=== PATIENT | female | born 1935 | race Hispanic/Latino ===

== ENCOUNTER 2017-02-13 11:40 | Emergency (ER) | payer MEDICARE ==
[~2017-02-13 11:40] MED LIST: ATOR10 PO; CEFU500T67 PO; CHOL200074 PO; CYCL30DR OU; DIGO250T PO; DOCU100T PO; FERS325 PO; FURO20TA4 PO; HUM10VIA6 SQ; ISOS30TA6 PO; LISI40TA4 PO; MAGN64TA9 PO; METF10004 PO; ONDA4TAB10 PO; TRAM50TA4 PO; WARF4TAB41 PO
[2017-02-13] MEDS ORDERED: ACETAMINOPHEN 325 MG TAB ONE (11:53)
[2017-02-13] MEDS ORDERED: ONDANSETRON HCL 4 MG/2 ML VIAL ONE (12:11)
[2017-02-13] MEDS ORDERED: SODIUM CHLORIDE 0.9% 1000ML 1,000 ML IV ONE (12:11)
[2017-02-13 13:00] LABS: BASOPHILS % (AUTO) 0.5 % (0.0-5.0); EOSINOPHILS % (AUTO) 0.1 % (0.0-8.0); HEMATOCRIT 29.8 % (36-48); MEAN CORPUSCULAR HGB CONC 34.5 g/dL (32.0-36.0); MONOCYTES % (AUTO) 7.5 % (3.0-13.0); NEUTROPHILS % (AUTO) 86.9 % (40.0-77.0); PLATELET COUNT (AUTO) 191 K/uL (130-400); RED BLOOD CELL COUNT(AUTO) 3.43 MIL/uL (4.00-5.50); RED CELL DISTRIBUTION WIDTH 14.5 % (11.0-15.5)
[2017-02-13 13:07] LABS: CREATININE 1.3 mg/dL (0.5-1.5); POTASSIUM 4.9 mmol/L (3.5-5.1)
[2017-02-13 13:15] LABS: BILIRUBIN,DIRECT 0.4 mg/dL (0.0-0.3); BILIRUBIN,TOTAL 0.9 mg/dL (0.2-1.0); TOTAL PROTEIN, SERUM 7.1 g/dL (6.0-8.3)
== END 2017-02-13 14:48 | disposition home or self-care (01) ==
LOC: EDH 11:40
DX: J20.9 Acute bronchitis, unspecified (principal); K52.9 Noninfective gastroenteritis and colitis, unspecified; I48.91 Unspecified atrial fibrillation; E11.9 Type 2 diabetes mellitus without complications; I10 Essential (primary) hypertension; E78.5 Hyperlipidemia, unspecified; Z95.0 Presence of cardiac pacemaker; Z98.890 Other specified postprocedural states
CPT/HCPCS: 36415; 71045; 80048; 80076; 83690; 85025; 87804 ×2; 96361; 96374; 99285; J2405; J7030

== ENCOUNTER 2017-04-13 20:02 | Inpatient (IN) | payer MEDICARE ==
[2017-04-13 21:04] LABS: BASOPHILS % (AUTO) 1.3 % (0.0-5.0); EOSINOPHILS % (AUTO) 7.4 % (0.0-8.0); HEMATOCRIT 36.2 % (36-48); LYMPHOCYTES % (AUTO) 21.8 % (21.0-51.0); MEAN CORPUSCULAR HEMOGLOBIN 28.7 pg (27.0-33.0); MEAN CORPUSCULAR HGB CONC 34.9 g/dL (32.0-36.0); MEAN CORPUSCULAR VOLUME 82.3 fL (79-99); MONOCYTES % (AUTO) 6.8 % (3.0-13.0); NEUTROPHILS % (AUTO) 62.7 % (40.0-77.0); NUCLEATED RED BLOOD CELLS 0.1 % (0.0-0.19); PLATELET COUNT (AUTO) 257 K/uL (130-400); RED CELL DISTRIBUTION WIDTH 15.1 % (11.0-15.5); WHITE BLOOD COUNT (AUTO) 8.9 K/uL (4.8-10.8)
[2017-04-13] MEDS ORDERED: SODIUM CHLORIDE 0.9% 1000ML 1,000 ML IV ONE ×2 (21:11→23:46)
[2017-04-13] MEDS ORDERED: INSULIN HUMULIN R 100 UNIT/ML 3ML ONE (21:11)
[2017-04-13 21:18] LABS: INR 1.02 (0.85-1.15); PARTIAL THROMBOPLASTIN TIME 25.9 SEC (26.3-35.5); PROTHROMBIN TIME 10.7 SEC (9.6-11.6)
[2017-04-13 21:33] LABS: ALANINE AMINOTRANSFERASE 15 U/L (12-78); ALBUMIN 3.2 g/dL (3.5-5.0); ASPARTATE AMINOTRANSFERASE 13 U/L (10-37); BILIRUBIN,TOTAL 0.5 mg/dL (0.2-1.0); CARBON DIOXIDE 27 mmol/L (21-32); CHLORIDE 91 mmol/L (101-111); CREATINE KINASE MB 0.9 ng/mL (0.5-3.6); CREATINE KINASE, TOTAL 22 U/L (21-232); CREATININE 1.4 mg/dL (0.5-1.5); GLOMERULAR FILTR. RATE CALC 38 mL/min (>60); POTASSIUM 3.8 mmol/L (3.5-5.1); SODIUM SERUM 129 mmol/L (136-145); TOTAL PROTEIN, SERUM 7.7 g/dL (6.0-8.3); UREA NITROGEN, BLOOD 36 mg/dL (7-18)
[2017-04-13 21:36] LABS: ACETONE,BLOOD NEGATIVE (NEGATIVE)
[2017-04-13 21:38] LABS: GLUCOSE,RANDOM 621 mg/dL (70-105)
[2017-04-13] MEDS ORDERED: SODIUM CHLORIDE 0.9% 1000ML 1,000 ML IV SCH (23:02)
[2017-04-13] MEDS ORDERED: DEXTROSE 50%-WATER 50 ML DISP.SYRIN IV PRN (23:30)
[2017-04-13] MEDS ORDERED: GLUCAGON 1MG KIT 1 MG ML IM PRN (23:30)
[2017-04-14] MEDS ORDERED: SODIUM CHLORIDE 0.9% 1000ML 1,000 ML IV ONE (00:49)
[2017-04-14 02:30] VITALS: BP 144/68
[2017-04-14] MEDS ORDERED: FURO20TA4 PO (03:11)
[2017-04-14] MEDS ORDERED: ISOS20TA7 PO (03:11)
[2017-04-14] MEDS ORDERED: HUM10VIA6 SQ ×2 (03:11)
[2017-04-14] MEDS ORDERED: ATOR10TA69 PO (03:11)
[2017-04-14] MEDS ORDERED: APIX2.5T PO (03:11)
[2017-04-14] MEDS ORDERED: ferrous sulfate PO (03:11)
[2017-04-14] MEDS ORDERED: POTA10TA PO (03:11)
[2017-04-14] MEDS ORDERED: DIGO125T87 PO (03:11)
[2017-04-14] MEDS ORDERED: AMLO5TAB2 PO (03:11)
[2017-04-14] MEDS ORDERED: [UNRECOGNIZED DRUG - CODE] PO (03:11)
[2017-04-14] MEDS ORDERED: ATEN50TA PO (03:11)
[2017-04-14] MEDS ORDERED: LOSA25TA21 PO (03:11)
[2017-04-14] MEDS: INSULIN HUMULIN R 100 UNIT/ML 3ML SQ SCH ×5 (04:14→20:00)
[2017-04-14 04:46] LABS: HEMATOCRIT 39.5 % (36-48); MEAN CORPUSCULAR HEMOGLOBIN 27.7 pg (27.0-33.0); MEAN CORPUSCULAR HGB CONC 33.1 g/dL (32.0-36.0); MEAN CORPUSCULAR VOLUME 83.8 fL (79-99); PLATELET COUNT (AUTO) 234 K/uL (130-400); RED BLOOD CELL COUNT(AUTO) 4.71 MIL/uL (4.00-5.50); RED CELL DISTRIBUTION WIDTH 15.1 % (11.0-15.5)
[2017-04-14 04:51] LABS: MAGNESIUM 1.6 mg/dL (1.80-2.40); POTASSIUM 3.4 mmol/L (3.5-5.1)
[2017-04-14 07:00] VITALS: BP 162/65
[2017-04-14] MEDS ORDERED: ENOXAPARIN SODIUM 30 MG/0.3 ML SQ SCH (09:00)
[2017-04-14] MEDS: PANTOPRAZOLE SODIUM 40 MG TABLET.DR PO SCH (09:24)
[2017-04-14 11:00] VITALS: BP 131/58
[2017-04-14 15:00] VITALS: BP 133/72
[2017-04-14 21:08] VITALS: BP 133/60
[2017-04-15] VITALS (7 sets, daily range): BP systolic 110–158; BP diastolic 51–78
[2017-04-15 03:33] LABS: APPEARANCE,URINE Cloudy (CLEAR); BILIRUBIN,URINE Negative (NEGATIVE); COLOR,URINE Yellow (YELLOW); GLUCOSE, URINE (UA) 500 mg/dL (NEGATIVE); KETONES,URINE Negative (NEGATIVE); LEUKOCYTE ESTERASE ,URINE Moderate (NEGATIVE); NITRATE,URINE Negative (NEGATIVE); OCCULT BLOOD,URINE Trace (NEGATIVE); PROTEIN,URINE Trace (NEGATIVE); UROBILINOGEN,URINE 0.2 mg/dL (0.2-1.0)
[2017-04-15 03:44] LABS: BACTERIA,URINE Many /HPF (None Seen); RBC,URINE 0-1 /HPF (0-1)
[2017-04-15 03:45] LABS: MUCUS,URINE Few LPF (None Seen); SQUAMOUS EPITHELIAL CELL,UR Rare /LPF (0-2)
[2017-04-15] MEDS: PNEUMOCOCCAL VACCINE POLYVALENT 0.5 ML/VIAL [PPV] IM SCH (07:30)
[2017-04-15] MEDS ORDERED: CEFTRIAXONE 1GM/D5W 50ML 50 ML IV SCH (07:45)
[2017-04-15] MEDS: INSULIN HUMULIN R 100 UNIT/ML 3ML SQ SCH ×5 (08:04→22:50)
[2017-04-15] MEDS ORDERED: INSULIN HUMULIN 70/30 100 UNIT/ML 3ML SQ SCH ×2 (09:00→17:00)
[2017-04-15] MEDS: CEFTRIAXONE SODIUM 1 GM IVP SCH (09:14)
[2017-04-15] MEDS: ATENOLOL 50 MG TABLET PO SCH (09:15)
[2017-04-15] MEDS: APIXABAN 2.5 MG TABLET PO SCH ×2 (09:15→22:42)
[2017-04-15] MEDS: DIGOXIN 125 MCG TABLET PO SCH (09:16)
[2017-04-15] MEDS: ISOSORBIDE MONO 30MG TAB SR PO SCH ×2 (09:16→22:42)
[2017-04-15] MEDS: PANTOPRAZOLE SODIUM 40 MG TABLET.DR PO SCH (09:16)
[2017-04-15] MEDS: FUROSEMIDE 20 MG TABLET PO SCH ×2 (09:16→22:41)
[2017-04-15] MEDS: AMLODIPINE BESYLATE 5 MG TAB PO SCH (09:16)
[2017-04-15] MEDS: POTASSIUM CHLORIDE 10 MEQ/TAB.SA PO SCH ×2 (09:18→22:42)
[2017-04-15 09:47] LABS: CREATININE 0.9 mg/dL (0.5-1.5); MAGNESIUM 1.5 mg/dL (1.80-2.40); POTASSIUM 3.3 mmol/L (3.5-5.1)
[2017-04-15] MEDS ORDERED: POTASSIUM CHLORIDE 10% ELIXIR 20 MEQ/15 ML UDCUP PO PRN (11:45)
[2017-04-15] MEDS ORDERED: POTASSIUM CHLORIDE 20MEQ/100ML 100 ML IV PRN (11:45)
[2017-04-15] MEDS ORDERED: POTASSIUM CHLORIDE 20 MEQ ERTAB PO PRN (11:45)
[2017-04-15] MEDS ORDERED: LIDOCAINE HCL-MPF 1% 2ML VIAL IVP PRN (11:45)
[2017-04-15] MEDS: MAGNESIUM 2GM PREMIX 50ML 50 ML IV SCH (11:50)
[2017-04-15] MEDS: LOSARTAN 50 MG TABLET PO SCH (22:41)
[2017-04-15] MEDS: ATORVASTATIN CALCIUM 10 MG TABLET PO SCH (22:41)
[2017-04-16 00:20] VITALS: BP 135/68
[2017-04-16 04:41] VITALS: BP 133/65
[2017-04-16] MEDS: INSULIN HUMULIN R 100 UNIT/ML 3ML SQ SCH ×4 (06:31→21:04)
[2017-04-16 08:04] VITALS: BP 123/66
[2017-04-16] MEDS ORDERED: LIDOCAINE HCL-MPF 1% 2ML VIAL IVP PRN (09:15)
[2017-04-16] MEDS ORDERED: POTASSIUM CHLORIDE 10% ELIXIR 20 MEQ/15 ML UDCUP PO PRN (09:15)
[2017-04-16] MEDS ORDERED: POTASSIUM CHLORIDE 20 MEQ ERTAB PO PRN (09:15)
[2017-04-16] MEDS ORDERED: MAGNESIUM 2GM PREMIX 50ML 50 ML IV PRN (09:15)
[2017-04-16] MEDS ORDERED: POTASSIUM CHLORIDE 20MEQ/100ML 100 ML IV PRN (09:15)
[2017-04-16] MEDS: CEFTRIAXONE SODIUM 1 GM IVP SCH (09:17)
[2017-04-16] MEDS: ATENOLOL 50 MG TABLET PO SCH (09:18)
[2017-04-16] MEDS: ISOSORBIDE MONO 30MG TAB SR PO SCH ×2 (09:18→20:49)
[2017-04-16] MEDS: APIXABAN 2.5 MG TABLET PO SCH ×2 (09:18→20:50)
[2017-04-16] MEDS: FUROSEMIDE 20 MG TABLET PO SCH ×2 (09:19→20:50)
[2017-04-16] MEDS: PANTOPRAZOLE SODIUM 40 MG TABLET.DR PO SCH (09:19)
[2017-04-16] MEDS: POTASSIUM CHLORIDE 10 MEQ/TAB.SA PO SCH ×2 (09:19→20:51)
[2017-04-16] MEDS: DIGOXIN 125 MCG TABLET PO SCH (09:19)
[2017-04-16] MEDS: AMLODIPINE BESYLATE 5 MG TAB PO SCH (09:19)
[2017-04-16 09:58] LABS: CREATININE 1.2 mg/dL (0.5-1.5); MAGNESIUM 1.7 mg/dL (1.80-2.40); POTASSIUM 4.1 mmol/L (3.5-5.1)
[2017-04-16] MEDS: MAGNESIUM 2GM PREMIX 50ML 50 ML IV SCH (10:34)
[2017-04-16 11:21] VITALS: BP 124/60
[2017-04-16] MEDS ORDERED: ZINC OXIDE OINT 30GM TUBE TP PRN (15:45)
[2017-04-16 16:13] VITALS: BP 108/59
[2017-04-16 20:14] VITALS: BP 106/49
[2017-04-16] MEDS: ATORVASTATIN CALCIUM 10 MG TABLET PO SCH (20:49)
[2017-04-16] MEDS: LOSARTAN 50 MG TABLET PO SCH (20:50)
[2017-04-16] MEDS ORDERED: INSULIN GLARGINE 100 UNITS/ML 10 ML VIAL SQ SCH (21:00)
[2017-04-17] VITALS (7 sets, daily range): BP systolic 98–118; BP diastolic 52–62
[2017-04-17 05:26] LABS: MEAN CORPUSCULAR HEMOGLOBIN 28.5 pg (27.0-33.0); MEAN CORPUSCULAR HGB CONC 34.6 g/dL (32.0-36.0); MEAN CORPUSCULAR VOLUME 82.4 fL (79-99); NUCLEATED RED BLOOD CELLS 0.1 % (0.0-0.19); PLATELET COUNT (AUTO) 228 K/uL (130-400); RED BLOOD CELL COUNT(AUTO) 4.13 MIL/uL (4.00-5.50)
[2017-04-17 05:40] LABS: CREATININE 1.1 mg/dL (0.5-1.5); POTASSIUM 3.7 mmol/L (3.5-5.1)
[2017-04-17] MEDS: CEFTRIAXONE SODIUM 1 GM IVP SCH (06:51)
[2017-04-17] MEDS: INSULIN HUMULIN R 100 UNIT/ML 3ML SQ SCH ×4 (06:55→21:22)
[2017-04-17] MEDS: DIGOXIN 125 MCG TABLET PO SCH (09:04)
[2017-04-17] MEDS: METFORMIN HCL 500 MG TABLET PO SCH ×2 (09:04→16:25)
[2017-04-17] MEDS: ISOSORBIDE MONO 30MG TAB SR PO SCH ×2 (09:04→19:54)
[2017-04-17] MEDS: APIXABAN 2.5 MG TABLET PO SCH ×2 (09:04→19:54)
[2017-04-17] MEDS: PANTOPRAZOLE SODIUM 40 MG TABLET.DR PO SCH (09:04)
[2017-04-17] MEDS: AMLODIPINE BESYLATE 5 MG TAB PO SCH (09:05)
[2017-04-17] MEDS: FUROSEMIDE 20 MG TABLET PO SCH ×2 (09:05→19:54)
[2017-04-17] MEDS: ATENOLOL 50 MG TABLET PO SCH (09:05)
[2017-04-17] MEDS: POTASSIUM CHLORIDE 10 MEQ/TAB.SA PO SCH ×2 (09:06→19:56)
[2017-04-17] MEDS: PNEUMOCOCCAL VACCINE POLYVALENT 0.5 ML/VIAL [PPV] IM SCH ×2 (10:36→10:38)
[2017-04-17] MEDS: MAGNESIUM 2GM PREMIX 50ML 50 ML IV SCH (11:45)
[2017-04-17] MEDS: ATORVASTATIN CALCIUM 10 MG TABLET PO SCH (19:54)
[2017-04-17] MEDS: LOSARTAN 50 MG TABLET PO SCH (21:00)
[2017-04-17] MEDS: INSULIN GLARGINE 100 UNITS/ML 10 ML VIAL SQ SCH (21:23)
[2017-04-18 04:37] VITALS: BP 103/50
[2017-04-18] MEDS: PNEUMOCOCCAL VACCINE POLYVALENT 0.5 ML/VIAL [PPV] IM SCH (06:00)
[2017-04-18] MEDS: INSULIN HUMULIN R 100 UNIT/ML 3ML SQ SCH (06:00)
[2017-04-18 08:11] VITALS: BP 136/73
[2017-04-18] MEDS: INSULIN GLARGINE 100 UNITS/ML 10 ML VIAL SQ SCH (08:12)
[2017-04-18] MEDS: CEFTRIAXONE SODIUM 1 GM IVP SCH (08:14)
[2017-04-18] MEDS: APIXABAN 2.5 MG TABLET PO SCH (08:14)
[2017-04-18] MEDS: METFORMIN HCL 500 MG TABLET PO SCH (08:15)
[2017-04-18] MEDS: FUROSEMIDE 20 MG TABLET PO SCH (08:15)
[2017-04-18] MEDS: AMLODIPINE BESYLATE 5 MG TAB PO SCH (08:15)
[2017-04-18] MEDS: ISOSORBIDE MONO 30MG TAB SR PO SCH (08:15)
[2017-04-18] MEDS: POTASSIUM CHLORIDE 10 MEQ/TAB.SA PO SCH (08:15)
[2017-04-18] MEDS: PANTOPRAZOLE SODIUM 40 MG TABLET.DR PO SCH (08:15)
[2017-04-18 08:16] VITALS: BP 136/73
[2017-04-18] MEDS: DIGOXIN 125 MCG TABLET PO SCH (08:16)
[2017-04-18] MEDS: ATENOLOL 50 MG TABLET PO SCH (08:16)
[2017-04-18] MEDS ORDERED: INSLAN SQ (08:53)
[2017-04-18] MEDS ORDERED: CEPH-578 PO (08:53)
[2017-04-18] MEDS: MAGNESIUM 2GM PREMIX 50ML 50 ML IV SCH (11:45)
== END 2017-04-18 13:25 | disposition home or self-care (01) | DRG 637 ==
LOC: EDH 20:02 → EDHIP 23:02 → OBSVTOIN 23:02 → 4AH 04-14 02:01
PROVIDERS: ADMIT Family Medicine; ATTEND Family Medicine
PROC: 3E0234Z Introduction of Serum, Toxoid and Vaccine into Muscle, Percutaneous Approach (ICD-10-PCS; principal; 2017-04-13)
DX: E11.65 Type 2 diabetes mellitus with hyperglycemia (principal); G93.41 Metabolic encephalopathy; E87.0 Hyperosmolality and hypernatremia; I48.91 Unspecified atrial fibrillation; E87.1 Hypo-osmolality and hyponatremia; N39.0 Urinary tract infection, site not specified; I12.9 Hypertensive chronic kidney disease with stage 1 through stage 4 chronic kidney disease, or unspecified chronic kidney disease; E11.22 Type 2 diabetes mellitus with diabetic chronic kidney disease; B96.20 Unspecified Escherichia coli [E. coli] as the cause of diseases classified elsewhere; F03.90 Unspecified dementia, unspecified severity, without behavioral disturbance, psychotic disturbance, mood disturbance, and anxiety; N18.3 Chronic kidney disease, stage 3 (moderate); Z79.01 Long term (current) use of anticoagulants; Z86.73 Personal history of transient ischemic attack (TIA), and cerebral infarction without residual deficits; Z89.611 Acquired absence of right leg above knee; Z89.612 Acquired absence of left leg above knee; Z95.0 Presence of cardiac pacemaker; Z79.4 Long term (current) use of insulin; Z23 Encounter for immunization
CPT/HCPCS: 36415; 70450; 71045; 80048; 80053; 81001; 82009; 82550; 82553; 82948; 83735; 84484; 85025; 85027; 85610; 85730; 87088; 87186; 90732; 93005; 99291; A4218; A4351; G0009; J0696; J1650; J1815; J3475; J3480; J3490; J7030

== ENCOUNTER 2017-11-21 03:02 | Inpatient (IN) | payer MEDICARE ==
[~2017-11-21 03:02] MED LIST changes: +AMLO5TAB7 PO; +APIX2.5T PO; +ATEN50TA PO; -ATOR10 PO; +ATOR10TA69 PO; -CEFU500T67 PO; +CEPH-578 PO; -CHOL200074 PO; -CYCL30DR OU; +DIGO125T87 PO; -DIGO250T PO; -DOCU100T PO; -FERS325 PO; -HUM10VIA6 SQ; +INSLAN SQ; +ISOS20TA7 PO; -ISOS30TA6 PO; -LISI40TA4 PO; +LOSA25TA16 PO; -MAGN64TA9 PO; -METF10004 PO; -ONDA4TAB10 PO; +POTA10TA PO; -TRAM50TA4 PO; -WARF4TAB41 PO; +[UNRECOGNIZED DRUG - CODE] PO; +ferrous sulfate PO
[2017-11-21 03:38] LABS: BASOPHILS % (AUTO) 0.5 % (0.0-5.0); EOSINOPHILS % (AUTO) 0.9 % (0.0-8.0); HEMATOCRIT 28.6 % (36-48); LYMPHOCYTES % (AUTO) 8.2 % (21.0-51.0); MEAN CORPUSCULAR HEMOGLOBIN 29.4 pg (27.0-33.0); MEAN CORPUSCULAR HGB CONC 34.1 g/dL (32.0-36.0); MEAN CORPUSCULAR VOLUME 86.3 fL (79-99); MONOCYTES % (AUTO) 6.2 % (3.0-13.0); NEUTROPHILS % (AUTO) 84.2 % (40.0-77.0); PLATELET COUNT (AUTO) 144 K/uL (130-400); RED BLOOD CELL COUNT(AUTO) 3.31 MIL/uL (4.00-5.50); RED CELL DISTRIBUTION WIDTH 13.7 % (11.0-15.5); WHITE BLOOD COUNT (AUTO) 10.1 K/uL (4.8-10.8)
[2017-11-21] MEDS ORDERED: CEFTRIAXONE SODIUM 2 GM VIAL ONE (03:46)
[2017-11-21] MEDS ORDERED: SODIUM CHLORIDE 0.9% 50 ML IV ONE (03:46)
[2017-11-21] MEDS ORDERED: SODIUM CHLORIDE 0.9% 1000ML 1,000 ML IV ONE (03:46)
[2017-11-21 03:50] LABS: CREATININE 1.4 mg/dL (0.5-1.5); POTASSIUM 4.4 mmol/L (3.5-5.1)
[2017-11-21 03:52] LABS: APPEARANCE,URINE Turbid (CLEAR); BILIRUBIN,URINE Negative (NEGATIVE); COLOR,URINE Yellow (YELLOW); GLUCOSE, URINE (UA) >=1000 mg/dL (NEGATIVE); KETONES,URINE Negative (NEGATIVE); LEUKOCYTE ESTERASE ,URINE Large (NEGATIVE); NITRATE,URINE Positive (NEGATIVE); OCCULT BLOOD,URINE Negative (NEGATIVE); PROTEIN,URINE Negative (NEGATIVE)
[2017-11-21 03:52] LABS: INR 1.1 (0.85-1.15); PARTIAL THROMBOPLASTIN TIME 30.3 SEC (26.3-35.5); PROTHROMBIN TIME 11.5 SEC (9.6-11.6)
[2017-11-21 03:54] LABS: BILIRUBIN,DIRECT 0.2 mg/dL (0.0-0.3); BILIRUBIN,TOTAL 0.4 mg/dL (0.2-1.0); TOTAL PROTEIN, SERUM 6.6 g/dL (6.0-8.3)
[2017-11-21 04:11] LABS: BACTERIA,URINE Many /HPF (None Seen); RBC,URINE 0-1 /HPF (0-1); WBC,URINE 51-100 /HPF (0-1)
[2017-11-21] MEDS ORDERED: DEXTROSE 5 % AND 0.9 % NACL 1,000 ML IV ONE ×2 (05:02→07:30)
[2017-11-21] MEDS ORDERED: GLUCAGON 1MG KIT 1 MG ML IM PRN (06:15)
[2017-11-21] MEDS ORDERED: ONDANSETRON HCL 4 MG/2 ML VIAL IV PRN (06:15)
[2017-11-21] MEDS ORDERED: ACETAMINOPHEN 325 MG TAB PO PRN (06:15)
[2017-11-21 06:33] VITALS: BP 124/95
[2017-11-21] MEDS ORDERED: DEXTROSE 5 % AND 0.9 % NACL 1,000 ML IV SCH (06:45)
[2017-11-21 07:07] LABS: HEMOGLOBIN A1C 14.9 % (4.0-6.0)
[2017-11-21] MEDS: INSULIN HUMULIN R 100 UNIT/ML 3ML SQ SCH ×5 (07:30→21:00)
[2017-11-21] MEDS: CEFTRIAXONE SODIUM 1 GM IVP SCH (08:24)
[2017-11-21] MEDS: PANTOPRAZOLE SODIUM 40 MG TABLET.DR PO SCH (08:25)
[2017-11-21] MEDS ORDERED: ENOXAPARIN SODIUM 30 MG/0.3 ML SQ SCH (09:00)
[2017-11-21] MEDS ORDERED: HUM10VIA6 SQ (09:18)
[2017-11-21 12:04] VITALS: BP 130/66
[2017-11-21] MEDS ORDERED: DEXTROSE 5 %-0.45 % NACL 1,000 ML IV SCH (15:45)
[2017-11-21 15:57] VITALS: BP 131/64
[2017-11-21] MEDS: 1/2 NORMAL SALINE 1,000 ML IV SCH ×2 (16:15→23:52)
[2017-11-21 19:00] VITALS: BP 119/55
[2017-11-21] MEDS ORDERED: BISACODYL 5 MG TABLET.DR PO ONE (20:39)
[2017-11-21 23:00] VITALS: BP 132/63
[2017-11-21] MEDS: FUROSEMIDE 20 MG TABLET PO SCH (23:49)
[2017-11-21] MEDS: APIXABAN 2.5 MG TABLET PO SCH (23:50)
[2017-11-21] MEDS: ISOSORBIDE MONO 30MG TAB SR PO SCH (23:50)
[2017-11-21] MEDS: LOSARTAN 50 MG TABLET PO SCH (23:51)
[2017-11-21] MEDS: POTASSIUM CHLORIDE 10 MEQ/TAB.SA PO SCH (23:53)
[2017-11-22] MEDS: DEXTROSE 50%-WATER 50 ML DISP.SYRIN IV PRN (00:06)
[2017-11-22 03:00] VITALS: BP 134/56
[2017-11-22 04:44] LABS: BASOPHILS % (AUTO) 0.5 % (0.0-5.0); HEMATOCRIT 30.7 % (36-48); MEAN CORPUSCULAR HEMOGLOBIN 29.2 pg (27.0-33.0); MEAN CORPUSCULAR HGB CONC 33.3 g/dL (32.0-36.0); MEAN CORPUSCULAR VOLUME 87.6 fL (79-99); MONOCYTES % (AUTO) 7.9 % (3.0-13.0); NEUTROPHILS % (AUTO) 76.6 % (40.0-77.0); PLATELET COUNT (AUTO) 142 K/uL (130-400); RED CELL DISTRIBUTION WIDTH 14.2 % (11.0-15.5); WHITE BLOOD COUNT (AUTO) 10.7 K/uL (4.8-10.8)
[2017-11-22 05:00] LABS: ALBUMIN 2.7 g/dL (3.5-5.0); BILIRUBIN,TOTAL 0.4 mg/dL (0.2-1.0); CREATININE 1.1 mg/dL (0.5-1.5); TOTAL PROTEIN, SERUM 6.4 g/dL (6.0-8.3)
[2017-11-22] MEDS: CEFTRIAXONE SODIUM 1 GM IVP SCH (06:32)
[2017-11-22] MEDS: INSULIN HUMULIN R 100 UNIT/ML 3ML SQ SCH ×4 (06:33→21:36)
[2017-11-22 08:00] VITALS: BP 145/79
[2017-11-22] MEDS: POTASSIUM CHLORIDE 10 MEQ/TAB.SA PO SCH ×2 (10:09→21:28)
[2017-11-22] MEDS: AMLODIPINE BESYLATE 5 MG TAB PO SCH (10:09)
[2017-11-22] MEDS: FUROSEMIDE 20 MG TABLET PO SCH ×2 (10:09→21:29)
[2017-11-22] MEDS: ATORVASTATIN CALCIUM 10 MG TABLET PO SCH (10:09)
[2017-11-22] MEDS: PANTOPRAZOLE SODIUM 40 MG TABLET.DR PO SCH (10:09)
[2017-11-22] MEDS: ISOSORBIDE MONO 30MG TAB SR PO SCH ×2 (10:09→21:29)
[2017-11-22] MEDS: CALCIUM 600 + VITAMIN D 400 TABLET PO SCH (10:09)
[2017-11-22] MEDS: APIXABAN 2.5 MG TABLET PO SCH ×2 (10:10→21:29)
[2017-11-22] MEDS: ATENOLOL 50 MG TABLET PO SCH (10:10)
[2017-11-22 11:42] VITALS: BP 117/55
[2017-11-22 16:00] VITALS: BP 125/60
[2017-11-22] MEDS: 1/2 NORMAL SALINE 1,000 ML IV SCH (17:04)
[2017-11-22] MEDS: DIGOXIN 125 MCG TABLET PO SCH (17:04)
[2017-11-22 19:41] VITALS: BP 128/65
[2017-11-22] MEDS: LOSARTAN 50 MG TABLET PO SCH (21:30)
[2017-11-22 23:54] VITALS: BP 102/62
[2017-11-23 03:46] VITALS: BP 121/64
[2017-11-23] MEDS: 1/2 NORMAL SALINE 1,000 ML IV SCH ×2 (05:32→21:22)
[2017-11-23] MEDS: CEFTRIAXONE SODIUM 1 GM IVP SCH (05:32)
[2017-11-23] MEDS: INSULIN HUMULIN R 100 UNIT/ML 3ML SQ SCH ×4 (05:32→21:39)
[2017-11-23 08:00] VITALS: BP 134/62
[2017-11-23] MEDS: ISOSORBIDE MONO 30MG TAB SR PO SCH ×2 (10:38→21:22)
[2017-11-23] MEDS: CALCIUM 600 + VITAMIN D 400 TABLET PO SCH (10:38)
[2017-11-23] MEDS: ATENOLOL 50 MG TABLET PO SCH (10:38)
[2017-11-23] MEDS: AMLODIPINE BESYLATE 5 MG TAB PO SCH (10:38)
[2017-11-23] MEDS: POTASSIUM CHLORIDE 10 MEQ/TAB.SA PO SCH ×2 (10:39→21:21)
[2017-11-23] MEDS: FUROSEMIDE 20 MG TABLET PO SCH ×2 (10:39→21:21)
[2017-11-23] MEDS: PANTOPRAZOLE SODIUM 40 MG TABLET.DR PO SCH (10:39)
[2017-11-23] MEDS: ATORVASTATIN CALCIUM 10 MG TABLET PO SCH (10:39)
[2017-11-23] MEDS: APIXABAN 2.5 MG TABLET PO SCH ×2 (10:39→21:20)
[2017-11-23 12:00] VITALS: BP 130/58
[2017-11-23 16:00] VITALS: BP 114/60
[2017-11-23] MEDS ORDERED: INSULIN GLARGINE 100 UNITS/ML 10 ML VIAL SQ ONE (16:15)
[2017-11-23] MEDS: DIGOXIN 125 MCG TABLET PO SCH (16:41)
[2017-11-23 20:54] VITALS: BP 112/65
[2017-11-23] MEDS: LOSARTAN 50 MG TABLET PO SCH (21:22)
[2017-11-24 00:29] VITALS: BP 121/57
[2017-11-24] MEDS: DEXTROSE 50%-WATER 50 ML DISP.SYRIN IV PRN (03:37)
[2017-11-24 04:00] VITALS: BP 121/65
[2017-11-24] MEDS: CEFTRIAXONE SODIUM 1 GM IVP SCH ×2 (05:28→10:54)
[2017-11-24 05:54] LABS: BASOPHILS % (AUTO) 0.7 % (0.0-5.0); EOSINOPHILS % (AUTO) 3.7 % (0.0-8.0); LYMPHOCYTES % (AUTO) 11.7 % (21.0-51.0); MEAN CORPUSCULAR HEMOGLOBIN 28.9 pg (27.0-33.0); MEAN CORPUSCULAR HGB CONC 33.1 g/dL (32.0-36.0); MEAN CORPUSCULAR VOLUME 87.3 fL (79-99); MONOCYTES % (AUTO) 9.5 % (3.0-13.0); NEUTROPHILS % (AUTO) 74.4 % (40.0-77.0); PLATELET COUNT (AUTO) 151 K/uL (130-400); RED BLOOD CELL COUNT(AUTO) 3.55 MIL/uL (4.00-5.50); RED CELL DISTRIBUTION WIDTH 14.1 % (11.0-15.5); WHITE BLOOD COUNT (AUTO) 8.2 K/uL (4.8-10.8)
[2017-11-24 06:12] LABS: CREATININE 1.3 mg/dL (0.5-1.5); POTASSIUM 3.5 mmol/L (3.5-5.1)
[2017-11-24] MEDS: INSULIN HUMULIN R 100 UNIT/ML 3ML SQ SCH ×2 (06:33→13:13)
[2017-11-24 07:00] VITALS: BP 130/61
[2017-11-24] MEDS: POTASSIUM CHLORIDE 10 MEQ/TAB.SA PO SCH (09:00)
[2017-11-24] MEDS: FUROSEMIDE 20 MG TABLET PO SCH (09:00)
[2017-11-24] MEDS: APIXABAN 2.5 MG TABLET PO SCH (10:54)
[2017-11-24] MEDS: PANTOPRAZOLE SODIUM 40 MG TABLET.DR PO SCH (10:54)
[2017-11-24] MEDS: AMLODIPINE BESYLATE 5 MG TAB PO SCH (10:54)
[2017-11-24] MEDS: ATORVASTATIN CALCIUM 10 MG TABLET PO SCH (10:54)
[2017-11-24] MEDS: ISOSORBIDE MONO 30MG TAB SR PO SCH (10:54)
[2017-11-24] MEDS: ATENOLOL 50 MG TABLET PO SCH (10:55)
[2017-11-24] MEDS: CALCIUM 600 + VITAMIN D 400 TABLET PO SCH (10:55)
[2017-11-24] MEDS: 1/2 NORMAL SALINE 1,000 ML IV SCH (10:56)
[2017-11-24 11:48] VITALS: BP 115/86
[2017-11-24] MEDS ORDERED: CEPH500B PO (12:31)
== END 2017-11-24 15:14 | disposition home or self-care (01) | DRG 637 ==
LOC: EDH 03:02 → EDHIP 05:23 → 3DH 06:01
PROVIDERS: ADMIT Internal Medicine; ATTEND Internal Medicine
DX: E11.649 Type 2 diabetes mellitus with hypoglycemia without coma (principal); G93.41 Metabolic encephalopathy; N39.0 Urinary tract infection, site not specified; I13.11 Hypertensive heart and chronic kidney disease without heart failure, with stage 5 chronic kidney disease, or end stage renal disease; N18.5 Chronic kidney disease, stage 5; E11.22 Type 2 diabetes mellitus with diabetic chronic kidney disease; B96.1 Klebsiella pneumoniae [K. pneumoniae] as the cause of diseases classified elsewhere; F03.90 Unspecified dementia, unspecified severity, without behavioral disturbance, psychotic disturbance, mood disturbance, and anxiety; I48.91 Unspecified atrial fibrillation; Z79.01 Long term (current) use of anticoagulants; Z89.611 Acquired absence of right leg above knee; Z89.612 Acquired absence of left leg above knee; Z95.0 Presence of cardiac pacemaker; Z86.73 Personal history of transient ischemic attack (TIA), and cerebral infarction without residual deficits; E11.65 Type 2 diabetes mellitus with hyperglycemia
CPT/HCPCS: 36415; 71045; 80048; 80053; 80076; 81001; 82947; 82948; 83036; 83605; 84484; 85025; 85610; 85730; 87040; 87077; 87088; 87186; 93005; 97039; 99291; A4218; J0696; J1815; J7030; J7042; J7070

== ENCOUNTER 2018-01-22 05:40 | Observation (INO) | payer MEDICARE ==
[2018-01-21 15:56] LABS: BASOPHILS % (AUTO) 0.9 % (0.0-5.0); EOSINOPHILS % (AUTO) 6.1 % (0.0-8.0); HEMATOCRIT 38.4 % (36-48); MEAN CORPUSCULAR HEMOGLOBIN 27.9 pg (27.0-33.0); MEAN CORPUSCULAR HGB CONC 32.3 g/dL (32.0-36.0); MEAN CORPUSCULAR VOLUME 86.2 fL (79-99); MONOCYTES % (AUTO) 9.2 % (3.0-13.0); NEUTROPHILS % (AUTO) 70.8 % (40.0-77.0); NUCLEATED RED BLOOD CELLS 0.1 % (0.0-0.19); PLATELET COUNT (AUTO) 265 K/uL (130-400); RED BLOOD CELL COUNT(AUTO) 4.45 MIL/uL (4.00-5.50); RED CELL DISTRIBUTION WIDTH 16.3 % (11.0-15.5); WHITE BLOOD COUNT (AUTO) 7.5 K/uL (4.8-10.8)
[2018-01-21 16:07] VITALS: BP 134/69
[2018-01-21 16:09] LABS: CREATININE 1.2 mg/dL (0.5-1.5); POTASSIUM 4.3 mmol/L (3.5-5.1)
[2018-01-21 16:11] LABS: INR 1.21 (0.85-1.15); PARTIAL THROMBOPLASTIN TIME 30.8 SEC (26.3-35.5); PROTHROMBIN TIME 12.7 SEC (9.6-11.6)
[2018-01-22] VITALS (12 sets, daily range): BP systolic 115–139; BP diastolic 55–85
[~2018-01-22 05:40] MED LIST changes: +ACET325C PO; +AMLO5TAB4 PO; -AMLO5TAB7 PO; -APIX2.5T PO; +ASCO500T10 PO; +CALC-189 PO; -CEPH-578 PO; +CYCL30DR OP; -FURO20TA4 PO; +HUM10VIA6 SQ; -INSLAN SQ; +INSREG SQ; +MELA3TAB PO; +MULT-1203 PO; -POTA10TA PO; -[UNRECOGNIZED DRUG - CODE] PO; -ferrous sulfate PO
[2018-01-22] MEDS ORDERED: SODIUM CHLORIDE 0.9% 1000ML 1,000 ML IV ONE (06:08)
[2018-01-22] MEDS ORDERED: DEXTROSE 50%-WATER 50 ML DISP.SYRIN IV ONE (06:47)
[2018-01-22] MEDS ORDERED: LIDOCAINE HCL 1% MDV 50ML VIAL ONE (07:15)
[2018-01-22] MEDS ORDERED: BUPIVACAINE/PF 0.25% 50ML VIAL IJ ONE (07:15)
[2018-01-22] MEDS ORDERED: SODIUM CHLORIDE 0.9% 1000ML 1,000 ML IV SCH (08:00)
[2018-01-22] MEDS ORDERED: DEXTROSE 50%-WATER 50 ML DISP.SYRIN IV PRN (08:30)
[2018-01-22] MEDS ORDERED: ACETAMINOPHEN 325 MG TAB PO PRN (08:30)
[2018-01-22] MEDS ORDERED: GLUCAGON 1MG KIT 1 MG ML IM PRN (08:30)
[2018-01-22] MEDS: **HM** RESTASIS OPTHL. OP SCH ×2 (09:00→21:00)
[2018-01-22] MEDS: INSULIN HUMULIN R 100 UNIT/ML 3ML SQ SCH ×3 (11:17→21:35)
[2018-01-22] MEDS: ASCORBIC ACID 500 MG TAB PO SCH ×2 (11:20→21:29)
[2018-01-22] MEDS: LOSARTAN 50 MG TABLET PO SCH (11:20)
[2018-01-22] MEDS: MULTIVITAMIN TABLET PO SCH (11:20)
[2018-01-22] MEDS: ISOSORBIDE MONONITRATE 20 MG TABLET PO SCH ×2 (11:20→21:29)
[2018-01-22] MEDS: CALCIUM 600 + VITAMIN D 400 TABLET PO SCH ×2 (11:20→21:29)
[2018-01-22] MEDS: CEFAZOLIN SODIUM 1 GM VIAL IVP SCH ×2 (15:51→23:37)
[2018-01-22] MEDS ORDERED: DIGOXIN 125 MCG TABLET PO SCH (16:00)
[2018-01-22] MEDS ORDERED: ATORVASTATIN CALCIUM 10 MG TABLET PO SCH (21:00)
[2018-01-22] MEDS ORDERED: **HM** MELATONIN 3MG PO SCH (21:00)
[2018-01-22] MEDS ORDERED: AMLODIPINE BESYLATE 5 MG TAB PO SCH (21:00)
[2018-01-22] MEDS ORDERED: ATENOLOL 50 MG TABLET PO SCH (21:00)
[2018-01-23 04:14] VITALS: BP 140/57
[2018-01-23] MEDS: INSULIN HUMULIN R 100 UNIT/ML 3ML SQ SCH ×2 (05:28→11:30)
[2018-01-23 07:50] VITALS: BP 114/66
[2018-01-23] MEDS ORDERED: INSULIN HUMULIN 70/30 100 UNIT/ML 3ML SQ SCH (08:00)
[2018-01-23] MEDS: ISOSORBIDE MONONITRATE 20 MG TABLET PO SCH (08:38)
[2018-01-23] MEDS: LOSARTAN 50 MG TABLET PO SCH (08:39)
[2018-01-23] MEDS: ASCORBIC ACID 500 MG TAB PO SCH (08:39)
[2018-01-23] MEDS: MULTIVITAMIN TABLET PO SCH (08:39)
[2018-01-23] MEDS: CALCIUM 600 + VITAMIN D 400 TABLET PO SCH (08:39)
[2018-01-23] MEDS: **HM** RESTASIS OPTHL. OP SCH (09:00)
[2018-01-23 11:00] VITALS: BP 116/56
[2018-01-23] MEDS ORDERED: LEVO500T2 PO (14:32)
== END 2018-01-23 15:13 ==
LOC: DAH 05:40 → DAHIP 05:41 → 2AH 09:30 → 2DH 17:18
PROVIDERS: ADMIT Internal Medicine Cardiovascular Disease; ATTEND Internal Medicine Cardiovascular Disease
DX: I44.2 Atrioventricular block, complete (principal); E78.5 Hyperlipidemia, unspecified; N18.9 Chronic kidney disease, unspecified; I25.10 Atherosclerotic heart disease of native coronary artery without angina pectoris; I13.0 Hypertensive heart and chronic kidney disease with heart failure and stage 1 through stage 4 chronic kidney disease, or unspecified chronic kidney disease; I48.2 Chronic atrial fibrillation; L89.90 Pressure ulcer of unspecified site, unspecified stage; F03.90 Unspecified dementia, unspecified severity, without behavioral disturbance, psychotic disturbance, mood disturbance, and anxiety; Z86.73 Personal history of transient ischemic attack (TIA), and cerebral infarction without residual deficits; Z95.0 Presence of cardiac pacemaker; Z74.01 Bed confinement status; Z79.899 Other long term (current) drug therapy; Z79.01 Long term (current) use of anticoagulants; Z82.49 Family history of ischemic heart disease and other diseases of the circulatory system
CPT/HCPCS: 33228; 36415; 80048; 82948 ×8; 85025; 85610; 85730; 93005; 96372 ×2; 96374; 96375; 96376; A4218 ×2; A4606; C1785; G0378 ×34; J0690 ×2; J1815 ×2; J3490 ×2; J7030; J7070